=== PATIENT | female | born 1995 | race Caucasian/White ===

== ENCOUNTER 2017-02-28 19:14 | Emergency (ER) | payer BC ==
[2017-02-28 19:19] VITALS: RESP 18
--- NOTE | 2017-02-28 19:56 | EDPHY ---
H & P Time Seen by Provider: 02/28/17 19:27 HPI/ROS: CHIEF COMPLAINT: Sore throat times 24 hours HISTORY OF PRESENT ILLNESS: 21-year-old old immunocompetent female complaining of 24 hours of sore throat positive odynophagia positive dysphagia. Positive subjective fever. Positive myalgias. No trismus no drooling. No chest pain. No back pain. No abdominal pain. No headache no urinary complaints. No rash. No chest pain. No dyspnea. No cough. 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 SOCIAL HISTORY: nonsmoker PHYSICAL EXAM (Prior to examination, patient consented to physical exam, hands were washed and my usual and customary physical exam procedures followed) 1) GENERAL: Well-developed, well-nourished, alert and oriented. Appears to be in no acute distress. 2) HEAD: Normocephalic, atraumatic 3) HEENT: Pupils equal, round, reactive to light bilaterally. Sclera anicteric. Oropharynx: No trismus no drooling. Bilateral tonsils are symmetrical, enlarged, exudative. There is no asymmetry. No pointing of the uvula. No evidence of peritonsillar or deep space infection. Ears bilaterally with normal tympanic membranes. 4) NECK: Full range of motion, no meningeal signs. Positive tender submandibular adenopathy. No submental tenderness. 5) LUNGS: Clear auscultation bilaterally, no wheezes, no rhonchi, no retractions. 6) HEART: Regular rate and rhythm, no murmur, no heave, no gallop. 7) ABDOMEN: No guarding, no rebound, no focal tenderness, 8) MUSCULOSKELETAL: No peripheral edema or discoloration. 9) BACK: No CVA tenderness. 10) SKIN: No rash, no petechiae. 11) Psychiatric: Patient is oriented X 3, there is no agitation. DIFFERENTIAL DIAGNOSIS: in no particular order including but not limited to strep pharyngitis, peritonsillar abscess, viral pharyngitis, mononucleosis Smoking Status: Unknown if ever smoked Constitutional: Initial Vital Signs Temperature (C) 37.2 C 02/28/17 19:16 Heart Rate 110 H 02/28/17 19:16 Respiratory Rate 18 02/28/17 19:16 Blood Pressure 118/91 H 02/28/17 19:16 O2 Sat (%) 97 02/28/17 19:16 O2 Delivery Mode Room Air Allergies/Adverse Reactions: No Known Allergies Allergy (Verified 02/28/17 19:15) Home Medications: Medication Instructions Recorded Rivaroxaban [Xarelto] 10 mg PO 04/26/15 Amoxicillin/Clavulanate Pot 875 mg PO BID #14 tab 02/28/17 [Augmentin 875 mg tab] Fluconazole [Diflucan (*)] 150 mg PO ONCE #0 tab 02/28/17 methylPREDNISolone [Medrol Dose 4 mg PO DAILY #1 ea 02/28/17 Kermit] MDM/Departure - [facility] ED Course/Re-evaluation: After examining the patient informed her that I have a high clinical suspicion for strep pharyngitis. Recommended empiric treatment. Doubt peritonsillar abscess. Retropharyngeal abscess or phlegmon. I recommended treatment with antibiotics and with Solu-Medrol. Inquired about history of adverse reaction to steroids and/or mental health history and she denies these. Patient also requests prescription for Diflucan noting that she will frequently develop yeast vaginitis when she is on antibiotics. This has been prescribed to her as well. Given her ENT follow-up information usual customary ENT precautions and instructions. 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 - Depart Clinical Impression: Acute streptococcal pharyngitis Condition: Good Instructions: Strep Throat (ED) Additional Instructions: Return to the ER immediately if you cannot swallow, have drooling, fevers, neck stiffness, cannot open your jaw, or any other symptoms that concern you. Prescriptions: Amoxicillin/Clavulanate Pot [Augmentin 875 mg tab] 875 mg PO BID #14 tab Fluconazole [Diflucan (*)] 150 mg PO ONCE #0 tab methylPREDNISolone [Medrol Dose Kermit] 4 mg PO DAILY #1 ea Referrals: Jenny Cordero MD [Medical Doctor] - 5-7 days, call for appt.
[2017-02-28 20:28] VITALS: BP 119/72; PULSE 95; TEMP 98.6; O2SAT 95
== END 2017-02-28 20:28 | disposition home or self-care (01) ==
DX: J02.0 Streptococcal pharyngitis (principal)